=== PATIENT | male | born 1925 | race Caucasian/White ===

== ENCOUNTER 2016-07-12 09:36 | Inpatient (IN) | payer MEDICARE, BC ==
[~2016-07-12] VITALS: Ht 172.7 cm; Wt 64.5 kg
[2016-07-12 10:53] LABS: BASOPHILS 0.1 % (0.0-2.0); EOSINOPHILS 0.4 % (0-7); HEMATOCRIT 31.6 % (42.0-54.0); HEMOGLOBIN 10.9 g/dL (13.5-17.5); IMMATURE GRANULOCYTES 0.5 % (0-5); LYMPHOCYTES 7.7 % (15-50); MCH 29.8 pg (26.0-34.0); MCHC 34.5 g/dL (31.0-37.0); MCV 86.3 fL (80.0-100.0); MONOCYTES 7.3 % (2-11); PLATELET COUNT 377 10x3/uL (130-400); RBC 3.66 10x6/uL (4.20-6.10); RDW 14.1 % (11.5-14.5)
[2016-07-12 11:31] LABS: ALBUMIN 3.7 g/dL (3.4-5.0); ANION GAP 14.1 mmol/L (8-16); BILIRUBIN - TOTAL 1.34 mg/dL (0.2-1.3); CALCIUM 9.4 mg/dL (8.5-10.1); CARBON DIOXIDE 31.6 mmol/L (21.0-32.0); CREATININE - SERUM 2.4 mg/dL (0.6-1.3); PROTEIN - SERUM 7.3 g/dL (6.4-8.2)
[2016-07-12 11:34] LABS: POTASSIUM - SERUM 2.7 mmol/L (3.5-5.1)
[2016-07-12 14:21] LABS: APPEARANCE CLOUDY (CLEAR); COLOR YELLOW (YELLOW)
[2016-07-12 14:22] LABS: BACTERIA FEW /hpf (NONE SEEN); BILIRUBIN NEGATIVE (NEGATIVE); EPITHELIAL CELLS NSEEN /hpf (0-5); GLUCOSE NEGATIVE (NEGATIVE); KETONE NEGATIVE (NEGATIVE); LEUKOCYTE ESTERASE 2+ (NEGATIVE); NITRITE NEGATIVE (NEGATIVE); PROTEIN TRACE mg/dL (NEGATIVE); RED CELLS - URINE 0-5 /hpf (0-5); UROBILINOGEN NORMAL (NORMAL); WHITE CELLS - URINE 25-50 /hpf (0-5)
[2016-07-12 14:29] LABS: YEAST >1+ WITH HYPHAE /hpf (NONE SEEN)
[2016-07-12] MEDS ORDERED: ASPIRIN EC81 M1 PO (16:51)
[2016-07-12] MEDS ORDERED: XANAX0.5 MG (16:53)
--- NOTE | 2016-07-12 17:09 | NUR ---
Patient Name: IBAN ALATORRE Admission Status: ER Accout number: [id number] Admission Date: 07-12-2016 : 1925 Admission Diagnosis: GI Bleed, Constipation Attending: JONY Current LOS: 1 Anticipated DC Date: 07-15-2016 Planned Disposition: Home with Home Health Primary Insurance: MEDICARE A & B Discharge Planning Comments: Cm met with patient to complete initial discharge planning assessment. Patient gave consent to complete assessment. Patient reports he lives home alone and has [facility]. He was recently discharged from [facility] for impaction and hyponatremia. He reports when he discharges he will have 24/7 caregivers 5 days a week through [facility]. Patient requires assistance with bathing, dressing, and medication management. Patient [facility] He is unsure of additional needs at this time. CM will continue to follow and assist with dc plan/needs. Agricultural Produce Washer: Lotus Sanabria RN, [facility] [phone] Is the patient Alert and Oriented? Yes * How many steps to enter\exit or inside your home? THREE * PCP [facility] Marge [facility] * [facility] * Preadmission Environment Home Alone * ADLs Partial Dependent * Partial ADLs (Assistance needed) Bathing Medication Management * Equipment Bedside Commode Cane Rolling Walker Shower Chair * List name and contact numbers for known caregivers / representatives who currently or will assist patient after discharge: Gino Alatorre - - [phone] * Community resources currently utilized Home Health * Please name any agencies selected above. [facility] [phone] * Additional services required to return to the preadmission environment? No * Can the patient safely return to the preadmission environment? Yes * Has this patient been hospitalized within the prior 30 days at any hospital? Yes
[2016-07-12 17:30] VITALS: BP 139/62; BMI 23.4
--- NOTE | 2016-07-12 17:40 | NUR ---
RECEIVED PATIENT FROM ER. ARRIVED KIRSTIN NELSON. ASSESSMENT, HX DONE. MONITOR ON SHOWS CAFIB. PT HAS A PACEMAKER. SMALL AMT OF BLOOD ON DEPENDS. WILL CONTINUE TO MONITOR.
--- NOTE | 2016-07-12 18:43 | NUR ---
IV STARTED IN THE RIGHT WRIST. IV FLUID OF NS AT 75CC/HR PT IS [place] TRIBE. TELEMERTY SHOWS SR. WILL MONITOR
[2016-07-12 20:00] VITALS: BP 131/53
--- NOTE | 2016-07-12 21:00 | NUR ---
INSERTED WINTER PER ORDERS R/T URINARY RENTENTION. UPON INSERTION IMMEDIATE FLOW OF CONCENTRATED URINE CAME OUT. PT HAD 1400ML OUT IMMEDIATELY. EMPTIED WINTER BAG AND SECURED STAT LOCK TO R.INNER THIGH AND PLACED WINTER BAG TO DRAIN TO GRAVITY. PT VOICED IMMEDIATE RELIEF AND THANKS. PT IS SITTING UP IN BED RESTING QUIELTY WAITING ON HIS NIGHT MEDS. DENIES ANY FURTHER NEEDS AT THIS TIME. CL IN REACH, BED IN LOWEST, SIDE RAILS X2 AND BOX ALARM CONNECTED TO L.SHOULDER. WILL CPOC.
[2016-07-13] VITALS: BP 167/50
--- NOTE | 2016-07-13 01:00 | NUR ---
PT RESTING QUIETLY IN BED WITH EYES CLOSED. RR NONLABORED ON RA. NO S/S OF DISTRESS OR ANY CURRENT NEEDS NOTED. CL IN REACH, BED IN LOWEST, SIDE RAILS X2. WILL CTM.
[2016-07-13 04:00] VITALS: BP 106/39
[2016-07-13] MEDS ORDERED: MIRALAX17 GM PO (04:06)
[2016-07-13] MEDS ORDERED: LEVOXYL25 MCG PO (04:06)
[2016-07-13] MEDS ORDERED: MIRAPEX0.125 MG PO ×2 (04:06→04:07)
[2016-07-13] MEDS ORDERED: NORVASC10 MG PO (04:07)
[2016-07-13] MEDS ORDERED: PROTONIX40 MG PO (04:07)
[2016-07-13] MEDS ORDERED: HYDROCODON-ACE1 EAC7 PO (04:07)
[2016-07-13] MEDS ORDERED: VITAMIN B-1100 M1 PO (04:08)
[2016-07-13] MEDS ORDERED: TUMS500 MG PO (04:08)
[2016-07-13] MEDS ORDERED: ZOFRAN4 MG PO (04:08)
[2016-07-13] MEDS ORDERED: PACERONE200 MG PO (04:09)
[2016-07-13] MEDS ORDERED: ALEVE220 MG PO (04:09)
[2016-07-13] MEDS ORDERED: DULCOLAX10 MG/SUPP RC (04:10)
[2016-07-13] MEDS ORDERED: VITAMIN B-121000 MCG PO (04:10)
[2016-07-13] MEDS ORDERED: CARDURA1 MG PO (04:11)
[2016-07-13] MEDS ORDERED: FUROSEMIDE40 MG PO (04:11)
[2016-07-13] MEDS ORDERED: FIBRICOR105 MG PO (04:11)
[2016-07-13] MEDS ORDERED: GEMFIBROZIL600 MG PO (04:12)
[2016-07-13 05:55] LABS: BASOPHILS 0.1 % (0.0-2.0); HEMATOCRIT 27.6 % (42.0-54.0); HEMOGLOBIN 9.4 g/dL (13.5-17.5); IMMATURE GRANULOCYTES 0.7 % (0-5); LYMPHOCYTES 6.3 % (15-50); MCH 29.7 pg (26.0-34.0); MCHC 34.1 g/dL (31.0-37.0); MCV 87.3 fL (80.0-100.0); MEAN PLATELET VOLUME 8.9 fL (7.4-10.4); MONOCYTES 8.3 % (2-11); NEUTROPHILS 83.6 % (40-80); PLATELET COUNT 364 10x3/uL (130-400); RBC 3.16 10x6/uL (4.20-6.10); RDW 14.2 % (11.5-14.5); WBC 8.3 10x3/uL (4.8-10.8)
[2016-07-13 06:34] LABS: ANION GAP 12.3 mmol/L (8-16); BILIRUBIN - TOTAL 0.9 mg/dL (0.2-1.3); CALCIUM 8.3 mg/dL (8.5-10.1)
[2016-07-13 06:36] LABS: APTT 29.9 SECONDS (22.8-39.4)
[2016-07-13 06:38] LABS: INR 1.01 (0.85-1.17); PROTIME 13.2 SECONDS (11.6-15.0)
[2016-07-13 07:13] LABS: POTASSIUM - SERUM 2.3 mmol/L (3.5-5.1)
[2016-07-13 08:27] VITALS: BP 129/60
--- NOTE | 2016-07-13 08:58 | NUR ---
ASSESSMENT COMPLETED. TELEMERTY SHOWS SR. RIGHT WRIST IV WITH NS AT 75. TO XRAY FOR TEST. WILL MONITOR
--- NOTE | 2016-07-13 10:15 | NUR ---
BACK FROM [facility]. PT HAD A LARGE AMT OF STOOL. PT CLEANED WITH FRESH LINEN ON
[2016-07-13 12:02] VITALS: BP 116/44
[2016-07-13 14:09] VITALS: Ht 172.7 cm; Wt 64.5 kg
--- NOTE | 2016-07-13 15:09 | NUR ---
LYING QUIETLY. STILL PASSING STOOL. TELEMERTY SHOWS PACED BEATS. WILL MONITOR
[2016-07-13 16:38] VITALS: BP 123/52
[2016-07-13 20:00] VITALS: BP 120/56
--- NOTE | 2016-07-13 20:15 | NUR ---
PT RESTING IN BED. ALERT/ORIENTED. NO IV ACCESS AND DOES NOT WANT TO BE STUCK AT THIS TIME. WILL TRY WHEN PT IS IN AGREEMENT. SR /PACED ON TELEMETRY. WINTER PATENT TO BEDSIDE DRAIN BAG. PT HAVING FREQUENT BM'S FROM [facility] DONE TODAY. ALSO MONITORING POTASSIUM LEVEL PER ELECTROLYTE PROTOCOL. SEE COMPLETED ASSESSMENT. CPOC. CALL LIGHT IN REACH.
--- NOTE | 2016-07-13 22:42 | NUR ---
HS MEDS GIVEN. NEWEST POTASSIUM LEVEL 2.7, ELECTROLYTE PROTOCOL INITIATED, 20MEQ POTASSIUM LIQUID GIVEN IN OJ. PT HAS FINALLY TAPERED OFF ON BMS'S FROM [facility]. WILL MONITOR.
--- NOTE | 2016-07-14 02:36 | NUR ---
PT WAS GIVEN 2 DOSES OF POTASSIUM PER ELECTROLYTE PROTOCOL BUT NOW STATES IT IS MAKING HIM NAUSEATED. REFUSED 3RD DOSE, BUT DID DRINK 240ML OF OJ.
[2016-07-14 04:00] VITALS: BP 111/49
[2016-07-14 05:53] LABS: BASOPHILS 0.1 % (0.0-2.0); EOSINOPHILS 2.7 % (0-7); HEMOGLOBIN 10.6 g/dL (13.5-17.5); IMMATURE GRANULOCYTES 0.5 % (0-5); LYMPHOCYTES 8.7 % (15-50); MCH 29.9 pg (26.0-34.0); MCHC 33.1 g/dL (31.0-37.0); MEAN PLATELET VOLUME 8.9 fL (7.4-10.4); MONOCYTES 6.9 % (2-11); NEUTROPHILS 81.1 % (40-80); PLATELET COUNT 386 10x3/uL (130-400); RBC 3.55 10x6/uL (4.20-6.10); RDW 14.2 % (11.5-14.5); WBC 7.7 10x3/uL (4.8-10.8)
--- NOTE | 2016-07-14 05:59 | NUR ---
AM MEDS GIVEN. PT HAS HAD NUMEROUS BOWEL MOVEMENTS THROUGH THE NIGHT. CARE PROVIDED. CALL LIGHT IN REACH.
[2016-07-14 06:15] LABS: MCV 90.1 fL (80.0-100.0)
[2016-07-14 06:30] LABS: CALCIUM 8.8 mg/dL (8.5-10.1); CREATININE - SERUM 1.8 mg/dL (0.6-1.3)
--- NOTE | 2016-07-14 07:28 | NUR ---
PT SITTING UP IN BED DENIES NEEDS WILL CONT TO MONITOR
[2016-07-14 08:05] VITALS: BP 123/61
[2016-07-14 08:09] LABS: MAGNESIUM - SERUM 1.8 mg/dL (1.8-2.4); PHOSPHOROUS 2.9 mg/dL (2.5-4.9)
--- NOTE | 2016-07-14 08:20 | NUR ---
IV ACCESS-22 GAUGE INSERTED IN RIGHT HAND FOR SALINE LOCK. ERICA JEFFRIES RN
--- NOTE | 2016-07-14 09:39 | NUR ---
PT WANTS TO TAKE GOLEYLY SOLUTION AT 1 PM. HOLDING UNTIL THEN.
[2016-07-14 15:22] VITALS: BP 114/55
--- NOTE | 2016-07-14 20:00 | NUR ---
FOLLOW UP POTASSIUM LEVEL NOW 3.6 NO FURTHER ACTION REQUIRED.
--- NOTE | 2016-07-14 20:32 | NUR ---
PT RESTING/ALERT AND ORIENTED. HE HAS COMPLETED THE [facility] GI PREP FOR HIS COLONOSCOPY IN AM. REVIEWED PLAN OF CARE. IVF NS @ 75ML/HR INFUSING. MONITORING POTASSIUM LEVEL PER ELECTROLYTE PROTOCOL. SEE SHIFT ASSESSMENT. CPOC. CALL LIGHT IN REACH.
[2016-07-14 20:39] LABS: CHOL - HDL RATIO 5.2 ratio (2.3-4.9); LDL-HDL RATIO 3.4 ratio (1.5-3.5)
[2016-07-14 22:07] VITALS: BP 149/73
--- NOTE | 2016-07-14 22:18 | NUR ---
HS MEDS GIVEN TO PATIENT. PT ALSO REQUESTED A PAIN PILL. HE IS VERY TIRED AND "MISERABLE" FROM ALL THE GI PREP HE HAS BEEN THROUGH. DISCUSSED HOW HIS STOMACH IS UNSETTLED. WILL ADMINISTER ZOFRAN 4MG SIVP AND MONITOR. IVF INFUSING. CALL LIGHT IN REACH.
[2016-07-15 01:57] VITALS: BP 129/63
[2016-07-15 05:26] VITALS: BP 106/63
[2016-07-15 06:54] LABS: MAGNESIUM - SERUM 1.7 mg/dL (1.8-2.4); PHOSPHOROUS 2.3 mg/dL (2.5-4.9); POTASSIUM - SERUM 3.3 mmol/L (3.5-5.1)
[2016-07-15 08:00] VITALS: BP 133/47
--- NOTE | 2016-07-15 08:32 | NUR ---
ASSESSMENT DONE. PT RESTING. A/O. NPO FOR COLONOSCOPY. NO DISTRESS NOTED. CALL LIGHT WITH IN REACH. WILL CONT. TO MONITOR.
--- NOTE | 2016-07-15 09:00 | NUR ---
PT TO GI LAB VIA BED. NO FAMILY PRESENT.
--- NOTE | 2016-07-15 09:19 | NUR ---
OUT OF ROOM FOR PROCEDURE. WILL CONT. PLAN OF CARE.
--- NOTE | 2016-07-15 10:49 | NUR ---
PT BACK FROM GI LAB. PT A/O. NO DISTRESS NOTED. WILL MONITOR. NO BLEEDING FOUND.
[2016-07-15 11:23] VITALS: BP 118/53
[2016-07-15 12:52] LABS: BASOPHILS 0.2 % (0.0-2.0); EOSINOPHILS 3.2 % (0-7); HEMATOCRIT 30.9 % (42.0-54.0); HEMOGLOBIN 10.1 g/dL (13.5-17.5); IMMATURE GRANULOCYTES 0.5 % (0-5); LYMPHOCYTES 8.2 % (15-50); MCH 29.8 pg (26.0-34.0); MCHC 32.7 g/dL (31.0-37.0); MCV 91.2 fL (80.0-100.0); MEAN PLATELET VOLUME 9.1 fL (7.4-10.4); NEUTROPHILS 79.9 % (40-80); PLATELET COUNT 389 10x3/uL (130-400); RBC 3.39 10x6/uL (4.20-6.10); RDW 14.8 % (11.5-14.5)
[2016-07-15 15:28] VITALS: BP 121/55
[2016-07-15] MEDS ORDERED: DIFLUCAN100 MG PO (17:10)
[2016-07-15] MEDS ORDERED: FERREX 150 PLUS1 CAP PO (17:11)
--- NOTE | 2016-07-15 17:14 | NUR ---
Patient Name: IBAN PAREKH Encounter No: [id number] : 1925 Primary Insurance: MEDICARE A & B Anticipated DC Date: 07-15-2016 Planned Disposition: Home with Home Health External Planned Provider: TO BE ARRANGED BY THE [facility] DCP follow-up note: CM MET WITH PT AT HIS REQUEST. PT REPORTS HE WANTS TO DISCHARGE HOME TODAY AND HAS ARRANGED 24 HOUR PER DAY CARE IN HOME FOR THE NEXT 5 DAYS TO BEGIN AT 8PM TONIGHT. PT HAS A FRIEND TO TRANSPORT HIM HOME TODAY. PT WANTS HOME HEALTH, HIS PRIMARY CARE PROVIDER IS DR. BARKER WITH [facility] IN [place]. CM ADVISED THAT CM WOULD ASK DR BERMAN FOR HOME HEALTH ORDER, FAX IT TO THE [facility] AND IF DR. BARKER AGREES AND PROVIDES ORDERS, THE DC WOULD ARRANGE HOME HEALTH. PT REPORTS AGREEMENT. PT STATES THAT AFTER 5 DAYS, IF HE NEEDS REHAB, HE WILL CONTACT [facility]. IMPORTANT MESSAGE FROM MEDICARE PROVIDED AND EXPLAINED. CM PAGED AND SPOKE TO DR. BERMAN WHO PROVIDED HOME HEALTH ORDER. CM CALLED [facility] AT 1630 HOURS, WAS NOT ANSWERED AND CALL FORWARDED TO [facility] OFFICE. CM FAXED REFERRAL FOR HOME HEALTH TO [facility] AT [phone]. PT NOTIFIED. DR. BERMAN NOTIFIED. NO FURTHER DISCHARGE NEEDS. Harry Godoy, CASE MANAGEMENT
[2016-07-15] MEDS ORDERED: LEVOXYL25 MCG PO (17:15)
--- NOTE | 2016-07-15 18:05 | NUR ---
D/C INSTRUCTIONS GIVEN TO PT. VERBALIZED UNDERSTANDING. IV REMOVED. PT AWAITING TRANSPORTATION HOME.
--- NOTE | 2016-07-15 18:24 | NUR ---
PT D/C HOME VIA PRIVATE VEHICLE. HH TO FOLLOW. WINTER LEFT IN. PT HAD WINTER CATH WHEN HE WAS ADMITTED TO HOSPITAL.
--- NOTE | 2016-07-16 09:07 | NUR ---
Patient Name: IBAN PAREKH Encounter No: [id number] : 1925 Primary Insurance: MEDICARE A & B Anticipated DC Date: 07-15-2016 Planned Disposition: Home with Home Health External Planned Provider: TO BE ARRANGED BY [facility] follow-up note: FAXED DISCHARGE INSTRUCTIONS AND DISCHARGE MEDICATION LIST THAT WERE NOT AVAILABLE PRIOR TO END OF CM SHIFT LAST NIGHT, TO [facility] AT [phone], TO ASSIST [facility] IN MAKING DECISION AND ARRANGING HOME HEALTH IF THE [facility] PHYSICIAN AGREES WITH NEED. PT DISCHARGED HOME LAST EVENING. NO FURHTER NEEDS IDENTIFIED AT THIS TIME. Harry Godoy, CASE MANAGEMENT
--- NOTE | 2016-07-23 15:02 | OP ---
PATIENT NAME: IBAN ALATORRE MEDICAL RECORD: [id number] :[birth year] LOCATION:D.M2 D.2125 ADMISSION DATE:07/12/16 SURGEON: VIKA BAKER MD DATE OF OPERATION: 07/15/2016 PROCEDURE: Colonoscopy with polypectomy. INDICATIONS: Mr. Alatorre is a delightful 89-year-old gentleman who presented to [facility] with rectal bleeding. He had been in rehab, on pain medication, developed severe obstipation with a fecal impaction. He had disimpaction at [facility] Emergency Department. He developed bleeding post-disimpaction, which persisted. His bleeding ceased during his hospitalization. His hemoglobin has been stable between 10-10.5. He presents for inpatient colonoscopy. PREMEDICATIONS: Total IV anesthesia (propofol 210 mg). INSTRUMENT: Olympus video colonoscope. PROCEDURE AND FINDINGS: After receiving informed consent, Mr. Alatorre was placed in left lateral decubitus position, sedated as per anesthesia. After achieving adequate level of sedation, digital rectal exam was performed that showed a few external hemorrhoidal tags, decreased sphincter tone. No palpable rectal masses. Prostate was small, firm without palpable nodules. Colonoscope was introduced per rectally and advanced to the cecum. The cecum, IC valve, and appendiceal orifice were identified. Within the cecum was a 0.5 cm sessile polyp removed with hot biopsy forcep technique. On the IC valve was a flat 0.3 cm sessile polyp removed with hot biopsy forcep technique. As the colonoscope was withdrawn, careful inspection was made of the bradley of the colon. Overall mucosa had normal vascular and fold pattern. There is no blood seen in the colon. There were a moderate number of diverticula seen scattered throughout the sigmoid colon. Retroflexion in the rectum was somewhat difficult secondary to redundancy of tissue (suspected partial rectal prolapse) and mild internal hemorrhoids were noted. A fair prep was present. Mr. Alatorre tolerated the procedure well, no immediate complications. ASSESSMENT: 1. Small cecal polyp status post hot biopsy. 2. Small IC valve polyp, status post hot biopsy. 3. Moderate sigmoid diverticulosis coli. 4. Mild internal hemorrhoids. 5. Redundant tissue in the distal rectum, suspect slight rectal prolapse. 6. Rectal bleeding was likely secondary to fissure or anal tear post-disimpaction or diverticular bleed. Bleeding has resolved. Hemoglobin and hematocrit are stable. 7. Anemia, acute, secondary to gastrointestinal blood loss. RECOMMENDATIONS: 1. Regular diet. 2. Daily Metamucil and Colace. 3. Avoid aspirin, nonsteroidal anti-inflammatory drugs for 14 days post-polypectomy. 4. Stable for discharge from GI standpoint. TRANSINT:[id number] Voice Confirmation ID: [id number] DOCUMENT ID: [id number] OPERATIVE REPORT [id number] IBAN ALATORRE TERRI MD at 1502 CC: INKKI GOULD MD and ZUHAIR BERMAN MD [id number] DICTATION DATE: 07/15/16 1010 ICE CREAM SHOP ASSOCIATE: 07/15/16 1157 DIS IN 07/15/16 [id number] [place] [address]
== END 2016-07-15 18:25 | disposition home or self-care (01) | DRG 348 ==
LOC: D.ER 09:36 → D.M2 15:01
PROVIDERS: Emergency Medicine; Family Medicine; Internal Medicine Gastroenterology; ADMIT Family Medicine
PROC: 0DBC8ZZ Excision of Ileocecal Valve, Via Natural or Artificial Opening Endoscopic (ICD-10-PCS; 2016-07-15)
PROC: 0DBH8ZZ Excision of Cecum, Via Natural or Artificial Opening Endoscopic (ICD-10-PCS; principal; 2016-07-15 09:30)
DX: D12.0 Benign neoplasm of cecum (principal); K62.5 Hemorrhage of anus and rectum; B37.49 Other urogenital candidiasis; E87.1 Hypo-osmolality and hyponatremia; N17.9 Acute kidney failure, unspecified; D62 Acute posthemorrhagic anemia; K59.00 Constipation, unspecified; E03.9 Hypothyroidism, unspecified; I10 Essential (primary) hypertension; I48.91 Unspecified atrial fibrillation; I25.10 Atherosclerotic heart disease of native coronary artery without angina pectoris; E87.6 Hypokalemia; G25.81 Restless legs syndrome; E86.0 Dehydration; E78.5 Hyperlipidemia, unspecified; K21.9 Gastro-esophageal reflux disease without esophagitis; N40.0 Benign prostatic hyperplasia without lower urinary tract symptoms; K62.3 Rectal prolapse; K64.8 Other hemorrhoids; K57.90 Diverticulosis of intestine, part unspecified, without perforation or abscess without bleeding; Z95.0 Presence of cardiac pacemaker

== ENCOUNTER 2016-07-24 04:13 | Inpatient (IN) | payer MEDICARE, BC ==
[~2016-07-24] VITALS: Ht 172.7 cm; Wt 72.1 kg
--- NOTE | ~2016-07-24 | DS ---
PATIENT:IBAN PAREKH :[birth year] MEDICAL RECORD: [id number] DISCHARGE SUMMARY ADMISSION DATE: 07/24/16 DISCHARGE DATE: 08/03/16 Addendum DISCHARGE MEDICATION: His doxazosin should read 1 mg 1/2 tab p.o. b.i.d. and then amlodipine 10 mg p.o. daily. TRANSINT:[id number] Voice Confirmation ID: [id number] DOCUMENT ID: [id number] JAYLENE RODRIGUEZ MD CC: [id number] DICTATION DATE: 08/03/16719 COOK TACO: 08/03/16 08 DIS IN 08/03/16 [id number] [place] [id number]
[~2016-07-24 04:13] MED LIST: ALEVE220 MG PO; ASPIRIN EC81 M1 PO; CARDURA1 MG PO; DIFLUCAN100 MG PO; DULCOLAX10 MG/SUPP RC; FERREX 150 PLUS1 CAP PO; FIBRICOR105 MG PO; FUROSEMIDE40 MG PO; GEMFIBROZIL600 MG PO; HYDROCODON-ACE1 EAC7 PO; LEVOXYL25 MCG PO; MIRALAX17 GM PO; MIRAPEX0.125 MG PO; NORVASC10 MG PO; PACERONE200 MG PO; PROTONIX40 MG PO; TUMS500 MG PO; VITAMIN B-1100 M1 PO; VITAMIN B-121000 MCG PO; XANAX0.5 MG; ZOFRAN4 MG PO
[2016-07-24 05:13] LABS: BASOPHILS 0.1 % (0.0-2.0); HEMATOCRIT 27.9 % (42.0-54.0); IMMATURE GRANULOCYTES 0.6 % (0-5); LYMPHOCYTES 6.8 % (15-50); MCH 29.4 pg (26.0-34.0); MCHC 32.3 g/dL (31.0-37.0); MCV 91.2 fL (80.0-100.0); MEAN PLATELET VOLUME 8.4 fL (7.4-10.4); NEUTROPHILS 84.5 % (40-80); PLATELET COUNT 300 10x3/uL (130-400); RBC 3.06 10x6/uL (4.20-6.10); RDW 15.3 % (11.5-14.5); WBC 10.4 10x3/uL (4.8-10.8)
[2016-07-24 05:22] LABS: ALBUMIN 3.2 g/dL (3.4-5.0); ANION GAP 14.8 mmol/L (8-16); BILIRUBIN - TOTAL 0.61 mg/dL (0.2-1.3); CALCIUM 8.9 mg/dL (8.5-10.1); CARBON DIOXIDE 27.7 mmol/L (21.0-32.0); CREATININE - SERUM 1.6 mg/dL (0.6-1.3); POTASSIUM - SERUM 4.5 mmol/L (3.5-5.1); PROTEIN - SERUM 6.7 g/dL (6.4-8.2)
[2016-07-24 05:38] LABS: TROPONIN-I 0.062 ng/mL (0.000-0.060)
[2016-07-24 08:41] VITALS: BP 135/64; BMI 24.2
--- NOTE | 2016-07-24 08:50 | NUR ---
RECEIVED PT FROM ER VIA STRETCHER. NO OTHER NEEDS AT THIS TIME. ASSESSMENT DONE PER FLOWHSEET. WILL CONTINUE TO MONITOR.
[2016-07-24 09:04] VITALS: BP 135/64
--- NOTE | 2016-07-24 11:57 | NUR ---
VANCOMYCIN IV GIVEN RIGHT WRIST/FOREARM AREA. 20 DANIEL. PHERERIAL LINE. HELPED INTO BATHROOM. STAND BY ASST. RAISOR ON TOILET.
[2016-07-24 12:12] VITALS: BP 126/54
[2016-07-24 13:07] LABS: CKMB 1.4 U/L (0.0-3.6); CREATINE KINASE 17 UL (21-232)
[2016-07-24 13:10] LABS: TROPONIN-I 0.067 ng/mL (0.000-0.060)
[2016-07-24 16:25] VITALS: BP 127/50
--- NOTE | 2016-07-24 17:46 | HP ---
PATIENT: IBAN PAREKH MEDICAL RECORD: [id number] ACCOUNT: [id number] LOCATION:[address] : [birth year] ADMISSION DATE: 07/24/16 HISTORY AND PHYSICAL EXAMINATION REASON FOR ADMISSION: Cough and shortness of breath. 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 He said that he had been in this hospital on July [address] Abel's care for obstipation and rectal bleeding. He was seen by Dr. Avendano and had a colonoscopy that showed a few polyps and rectal tear. He said that problem has improved. He had been at [facility] getting physical therapy and developed increasing cough, congestion about 9:00 last night. He panicked and became more short of breath, his sat was 84% and came in by EMS. He said his cough had been nonproductive. He has is sure he has had a fever. He has had an indwelling Foy catheter since he was here and says no one would take it out. He says he normally does not have any trouble urinating. He also relates having had 4 admissions since January 2016 at [facility] for pneumonia. He has never really had trouble with his lungs. He denies any recent chest pain or significant heart disease. He did receive a pacemaker for presumed AFib and bradycardia sometime in the recent past, but those records are not available. PAST MEDICAL HISTORY: Pneumonia times 4 in 2015, PAF, sick sinus syndrome, hypothyroidism, hypertension, degenerative joint disease, constipation, diverticulosis, rectal bleeding from a rectal tear in July 2016, GERD, questionable history of coronary artery disease, he denies having had cardiac catheterization, and restless legs syndrome. PAST SURGICAL HISTORY: He has had bilateral cataract surgery, bilateral knee replacements for arthritis, right inguinal hernia repair and cholecystectomy, TURP and pacemaker placement. FAMILY HISTORY: Father at 84 of old age. Mother at 83 of bone cancer, type unknown. One brother had an NV. SOCIAL HISTORY: He has been twice, both wives are . 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 He moved here for weather reasons. [place]. PAST MEDICAL HISTORY: He smoked until age 36 and quit. Denies heavy alcohol use. CURRENT MEDICATIONS: Amiodarone 200 mg a day, Dulcolax 10 mg daily p.r.n., vitamin B12 of 1 cc orally daily, Cardura 0.5 mg p.o. b.i.d., fenofibrate 105 mg daily, Diflucan 100 mg p.o. daily, Lasix 40 mg p.o. q.a.m., gemfibrozil 600 mg p.o. b.i.d., ferrous sulfate 150 mg p.o. daily, levothyroxine 75 mcg p.o. daily, Zofran 4 mg q.6 p.r.n. nausea and vomiting, Protonix 40 mg p.o. daily, MiraLax 17 grams p.o. in juice daily, Mirapex 0.125 mg p.o. at bedtime and 9:00 a.m., and thiamine 100 mg p.o. daily. REVIEW OF SYSTEMS: GENERAL: He has been somewhat fatigued. No fever. HEENT: No recent visual change, sinus congestion, shortness of breath, or HISTORY AND PHYSICAL [id number] IBAN PAREKH hearing difficulty. RESPIRATORY: Increased cough, congestion last night and trouble breathing with a low O2 sat. He denies sputum production or hemoptysis. CARDIAC: No exertional chest pain, claudication, or edema. GASTROINTESTINAL: No nausea, vomiting, change in stools, or blood per rectum. His constipation has been better since being on bowel regimen prescribed by Dr. Avendano. GENITOURINARY: Has nocturia once nightly. He said he has never had real trouble voiding and now has indwelling Foy. He would like it removed. No history of UTI or prostate cancer. MUSCULOSKELETAL: Has arthralgias in his knees and hips, but it is tolerable. ENDOCRINE: Denies polyuria, polydipsia, heat or cold intolerance. NEUROLOGIC: No history of stroke, TIA, or vascular headaches. INTEGUMENT: No rash or itching. PSYCHIATRIC: Denies depress mood. PHYSICAL EXAMINATION: GENERAL: The patient is alert and oriented and gives a good history. VITAL SIGNS: His temperature is 98.2 Fahrenheit, respirations are 24 and unlabored, blood pressure is 134/59 ____ on 2 liters, and heart rate is 88 and regular. HEENT: Normocephalic. Eyes are clear with lens implants noted. SKIN: Conjunctiva is somewhat pale. Mouth unremarkable. NECK: Supple, without bruits or JVD. CHEST: He has crackles in the right base. No wheezes. HEART: Regular rate and rhythm with I/ aortic systolic murmur. ABDOMEN: Soft and nontender. GENITOURINARY: Shows Foy intact. Testicles down. EXTREMITIES: No CC&E. He has healed surgical scars over both knees from prior replacement. NEUROLOGICAL: Oriented times 3. Memory is intact. Gait is somewhat slow due to quad weakness. Motor and sensory are otherwise intact. PSYCHIATRIC: Denies depressed mood. LABORATORY DATA: Shows a white count of 10.4 thousand with a left shift. H&H is 9.1 and 27.9, reflecting his prior anemia. MCV is 91.2. Platelet count is 300. Electrolytes are normal. BUN is 23, creatinine 1.6, alkaline phosphatase 120. Troponin 0.062. ProBNP is 3051. Throat culture is negative. Influenza culture is negative. DIAGNOSTIC DATA: Chest x-ray shows right lobar pneumonia. Pacemaker is noted as well. ASSESSMENT: 1. Hospital-acquired pneumonia, recurrent, with hypoxemia. 2. Chronic obstructive pulmonary disease. 3. Sick sinus syndrome with pacemaker. 4. History of paroxysmal atrial fibrillation. 5. Degenerative joint disease. 6. Hyperlipidemia. 7. Diverticulosis. 8. Anemia due to rectal bleeding?. 9. Essential hypertension. 10. Abnormal EKG with slight inferior strain pattern. 11. Mildly elevated troponin. HISTORY AND PHYSICAL [id number] IBAN PAREKH PLAN: We will check serial cardiac enzymes. Dr. Chance has been consulted by Dr. Jones from the ED. We will place the patient on appropriate antibiotics for hospital-acquired pneumonia. Review his records from [facility] for previous heart workup, anemia workup and further workup pending clinical course. TRANSINT:[id number] Voice Confirmation ID: [id number] DOCUMENT ID: [id number] JAYLENE RODRIGUEZ MD at 1746 CC: [id number] DICTATION DATE: 07/24/16 0936 NATURAL RESOURCES SPECIALIST: 07/24/16 1402 ADM IN [id number] [place] [address]
[2016-07-24 19:19] LABS: CKMB 1.4 U/L (0.0-3.6); CREATINE KINASE 20 UL (21-232); TROPONIN-I 0.055 ng/mL (0.000-0.060)
[2016-07-24 21:37] VITALS: BP 129/57
--- NOTE | 2016-07-24 23:05 | NUR ---
INITIAL ROUNDS COMPLETED AT 1915 HRS. PT DEMANDING PAIN MEDS. 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 STATES OK. MRPHONE DEALER SUPPORT TECHNICIAN BROUGHT INTO ROOM AND PT THEN REFUSED MED STATING HE WANTS ALEVE. ASKED PT IF HE WANTED ANYTHING ELSE LIKE SLEEPING MEDS, COUGH MEDS ETC AND PT STATED NO. DR RODRIGUEZ PAGED AT 1930 HRS. AND ORDER FOR ALEVE OBTAINED. NAPROXEN 500MG PO GIVEN. ASSESSMENT COMPLETED AT 2009 HRS. VSS. O2 2LNC. IV TO RFA WITH NS AT 50CC/HR. NUMEROUS BRUISES NOTED TO BILAT ARMS. BRUISE NOTED TO L LATERAL MID BACK. CONCAVE CHEST NOTED. LUNGS DIMINISHED IN BASES BILAT WITH SCATTERED EXP WHEEZE NOTED TO R LOBE. PT CALLED AT 2044 HRS STATING HE HAS WHEEZES AND HAVING TROUBLE BRATHING. O2 SAT 91%. pt pulled out in bed and informed to take slow, deep breaths. O2 SAT TO 93%. PM MEDS GIVEN. PT CALLED AT 2144 HRS AND STATES HE WAS HAVING TROUBLE BREATHING. O2 SAT 93%. PT PULLED UP IN BED. PT CALLED AGAIN AND STATED HE WANTED SOMETHING TO SLEEP. INFORMED PT HE WAS ASKED THAT EARLIER WHEN DR RODRIGUEZ WS PAGED AND HE STATED NO. PT DENEID SAYNG NO AND WANTS DR RODRIGUEZ CALLED. DR RODRIGUEZ PAGED AT 2230 HRS AND ORDER FOR RESTORIL OBTAINED. RESTORIL GIVEN. TELEMETR PLACED WITH SR HR 84 NOTED. PPM NOTED. WINTER DRAINING YELLOW URINE AND BLADDER TRAINING IN USE. SCD'S BROUGHT INTO ROOM BUT PT SITTING UP ON SIDE OF BED. O2 SAT 95%. WILL APPLY SCD'S WHEN PT GOES BACK TO BED. WILL CONTINUE TO MONITOR. SR U P X2, CALL LIGHT WITHIN REACH.
--- NOTE | 2016-07-24 23:54 | NUR ---
SCD'S PALCED. PT CLAMER; DENIES ANY SOB. WILL CONTINUE TO MONITOR. BED ALARM IN USE.
--- NOTE | 2016-07-25 00:04 | NUR ---
PT STATES HAS MILD SOB. O2 SAT 96% ON 2LNC. REPOSITIONED IN BED FOR COMFORT. WILL CONTINUE TO MONITOR.
[2016-07-25 00:30] VITALS: BP 113/50
--- NOTE | 2016-07-25 02:00 | NUR ---
PT AWAKE; DENIES ANY SOB. WILL CONTINUE TO MONITOR.
--- NOTE | 2016-07-25 04:24 | NUR ---
O2 SAT 98% ON 2LNC. MAGGY UNCLAMPED AT THIS TIME. WILL CONTINUE TO MONITOR. SR UP X2, CALL LIGHT WITHIN REACH.
[2016-07-25 04:30] VITALS: BP 128/51
[2016-07-25 06:36] LABS: BASOPHILS 0.1 % (0.0-2.0); EOSINOPHILS 0 % (0-7); IMMATURE GRANULOCYTES 0.3 % (0-5); LYMPHOCYTES 2.7 % (15-50); MCH 29.3 pg (26.0-34.0); MCHC 32.4 g/dL (31.0-37.0); MCV 90.4 fL (80.0-100.0); MEAN PLATELET VOLUME 8.7 fL (7.4-10.4); MONOCYTES 6.9 % (2-11); PLATELET COUNT 265 10x3/uL (130-400); RBC 2.39 10x6/uL (4.20-6.10); WBC 11.9 10x3/uL (4.8-10.8)
[2016-07-25 06:37] LABS: HEMATOCRIT 21.6 % (42.0-54.0)
--- NOTE | 2016-07-25 06:40 | NUR ---
VSS THROUGHOUT NIGHT. SR PER CM. WINTER DC'D WITH CATHETER INTACT. PT TOLERATED ACTIVITY WELL. NEEDS MET; WILL CONTINUE TO MONITOR.
[2016-07-25 06:49] LABS: ANION GAP 15.1 mmol/L (8-16); CALCIUM 8.4 mg/dL (8.5-10.1); CARBON DIOXIDE 25.6 mmol/L (21.0-32.0); CREATININE - SERUM 1.7 mg/dL (0.6-1.3); POTASSIUM - SERUM 4.7 mmol/L (3.5-5.1)
[2016-07-25 08:59] VITALS: BP 102/57
[2016-07-25 08:59] LABS: % SATURATION 10 % (15-55); IRON 26 ug/dl (35-150); TOTAL IRON BIND CAPACITY 255 ug/dl (260-445); UNSAT IRON BIND CAPACITY 229 ug/dl (150-375)
[2016-07-25 12:14] VITALS: BP 124/54
[2016-07-25 16:13] VITALS: BP 108/60
--- NOTE | 2016-07-25 19:15 | NUR ---
INITIAL ROUNDS MADE. PT LYING IN BED RECEIVING BLOOD TRANSFUSION. DENIES NEEDS OR C/O AT THIS TIME. TOLERATING PRBC WELL WITH NO S/S REACTION. WILL CONT TO MONITOR PER PROTOCOL.
--- NOTE | 2016-07-25 21:00 | NUR ---
BLOOD TRANSFUSION COMPLETE. VSS. NO SIGNS REACTION. WILL CONT TO MONITOR.
[2016-07-25 21:37] VITALS: BP 112/68
--- NOTE | 2016-07-25 22:25 | NUR ---
PT REQUESTING ALEVE FOR DISCOMFORT. EXPLAINED TO PT ONLY HAD TYLENOL ORDERED, ALEVE HAD BEEN DC'D. 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 REFUSES TYLENOL. STATES "IT HAS NEVER DONE ME ANY GOOD ANYHOW".
--- NOTE | 2016-07-26 00:22 | NUR ---
KEY ENTRY OPERATOR AT BEDSIDE FOR VS. NEEDS ADDRESSED AT THIS TIME. CALL LIGHT IN REACH. WILL CONT TO MONITOR.
[2016-07-26 00:30] VITALS: BP 111/72
--- NOTE | 2016-07-26 02:44 | NUR ---
PT GIVEN TYLENOL REQUESTED. CONT TO REFUSE THE MORPHINE.
--- NOTE | 2016-07-26 03:00 | NUR ---
ASSISTED PT UP TO BATHROOM.
[2016-07-26 04:45] VITALS: BP 115/51
[2016-07-26 06:47] LABS: BASOPHILS 0 % (0.0-2.0); EOSINOPHILS 0.3 % (0-7); HEMOGLOBIN 9.3 g/dL (13.5-17.5); IMMATURE GRANULOCYTES 0.3 % (0-5); LYMPHOCYTES 5.3 % (15-50); MCHC 33.2 g/dL (31.0-37.0); MCV 87.2 fL (80.0-100.0); MEAN PLATELET VOLUME 8.7 fL (7.4-10.4); MONOCYTES 6.4 % (2-11); NEUTROPHILS 87.7 % (40-80); PLATELET COUNT 250 10x3/uL (130-400); RBC 3.21 10x6/uL (4.20-6.10); RDW 16.9 % (11.5-14.5)
[2016-07-26 07:01] LABS: ANION GAP 14.5 mmol/L (8-16); CALCIUM 8.5 mg/dL (8.5-10.1); CARBON DIOXIDE 25.9 mmol/L (21.0-32.0); CREATININE - SERUM 1.9 mg/dL (0.6-1.3)
[2016-07-26 07:04] LABS: POTASSIUM - SERUM 3.4 mmol/L (3.5-5.1)
--- NOTE | 2016-07-26 07:04 | NUR ---
RESTING WELL WITH EYES CLOSED, WILL CONT TO MONITOR.
[2016-07-26 07:59] VITALS: BP 116/48
[2016-07-26 11:56] VITALS: BP 114/51
[2016-07-26 13:02] VITALS: Ht 172.7 cm; Wt 72.1 kg
--- NOTE | 2016-07-26 14:46 | NUR ---
THIS AM PATIENT HAS BEEN UPSET ABOUT WAITING FOR EGD. REFUSING IV MEDS. ORAL MEDS HELD DUE TO BEING NPO. AT THIS TIME PATIENT TO GI LAB FOR EGD.
--- NOTE | 2016-07-26 18:20 | NUR ---
PATIENT HAS BEEN BACK FROM GI LAB. YELENA PROCEDURE WELL. NO APPARENT DISTRESS.
--- NOTE | 2016-07-26 19:08 | NUR ---
PT TO CT VIA W/C
--- NOTE | 2016-07-26 20:01 | NUR ---
ASSESSEMENT DONE. PT BACK FROM CT. LAYING IN BED HOB ELEVATED. SCD'S ON. WEARING O2 AT 2L VIA NC. A/O. DENIES NEEDS AT THIS TIME. CALL LIGHT WITH IN REACH. WILL CONT. TO MONITOR.
[2016-07-26 21:40] VITALS: BP 140/69
--- NOTE | 2016-07-26 23:20 | NUR ---
PT C/O SINUS PAIN AND PRESSURE. REQUEST HEATING PAD FOR FACE. NURSE MADE A HEATING PAD WITH WASH CLOTHES AND HOT WATER, PLACED IN BAG, PLACED DRY WASH CLOTH ON PT'S FACE AND APPLIED WARM PACK. WILL CONT. TO MONITOR.
[2016-07-27 02:00] VITALS: BP 128/65
--- NOTE | 2016-07-27 02:29 | NUR ---
THE PHONE IN PT'S ROOM IS RINGING OVER AND OVER. NURSE WENT INTO PT'S ROOM, AND ASKED PT IF HE WANTED TO TALK ON THE PHONE. PT ANSWERED WITH " NO, I AM THE ONE CALLING. I CAN'T FIND MY CALL BUTTON." PT WAS USING HIS OWN CELL PHONE TO CALL HIS ROOM PHONE. PT'S CALL BUTTON WAS LAYING NEXT TO HIM IN BED. PT REQUESTED A RED POPSICLE.
[2016-07-27 06:04] LABS: BASOPHILS 0.2 % (0.0-2.0); EOSINOPHILS 1.8 % (0-7); HEMATOCRIT 27.5 % (42.0-54.0); IMMATURE GRANULOCYTES 0.2 % (0-5); MCH 28.9 pg (26.0-34.0); MCHC 32.7 g/dL (31.0-37.0); MCV 88.4 fL (80.0-100.0); MEAN PLATELET VOLUME 9.2 fL (7.4-10.4); MONOCYTES 7.7 % (2-11); NEUTROPHILS 82.1 % (40-80); PLATELET COUNT 275 10x3/uL (130-400); RBC 3.11 10x6/uL (4.20-6.10); RDW 17.1 % (11.5-14.5)
[2016-07-27 06:13] LABS: ANION GAP 11.2 mmol/L (8-16); CALCIUM 8.5 mg/dL (8.5-10.1); CARBON DIOXIDE 27.9 mmol/L (21.0-32.0); CREATININE - SERUM 1.7 mg/dL (0.6-1.3); POTASSIUM - SERUM 3.1 mmol/L (3.5-5.1)
[2016-07-27 06:16] LABS: WBC 4.4 10x3/uL (4.8-10.8)
--- NOTE | 2016-07-27 06:24 | NUR ---
EP FOLLOWED. K+ 3.1. 40MEQ OF LIQUID POTASSIUM GIVEN IN ORANGE JUICE. ORDER PUT IN FOR REPEAT K+ IN 4 HOURS. ALSO ORDERED PHOS, AND MAG. PT SITTING ON SIDE OF BED AFTER NURSE ASSISTED PT TO BATHROOM. CALL LIGHT WITH IN REACH. WILL CONT. TO MONITOR.
--- NOTE | 2016-07-27 07:00 | NUR ---
RECEIVED REPORT. ASSUMED CARE OF PATIENT. RESTING IN BED WITH EYES OPEN. CALL LIGHT WITHIN REACH. DENIES NEEDS AT THIS TIME. NO DISTRESS. RESP EVEN AND UNLABORED.
[2016-07-27 07:11] LABS: MAGNESIUM - SERUM 2.3 mg/dL (1.8-2.4)
[2016-07-27 08:07] VITALS: BP 115/57
[2016-07-27 09:17] LABS: FOLATE (FOLIC ACID) - SERUM 5.7 ng/mL (>3.0)
--- NOTE | 2016-07-27 11:36 | NUR ---
RESTING IN BED. NO DISTRESS. LARGE BM FROM SUPPOSITORY. CALL LIGHT WITH IN REACH.
[2016-07-27 12:22] VITALS: BP 108/49
--- NOTE | 2016-07-27 15:00 | CN ---
PATIENT NAME:IBAN ALATORRE MEDICAL RECORD: [id number] : [birth year] LOCATION:[facility].2127 ADMIT DATE: 07/24/16 ACCOUNT: [id number] CONSULTING PHYSICIAN: KATHARINA IRIZARRY MD REFERRING PHYSICIAN: ASHLEY GALINDO MD DATE OF CONSULTATION: 07/24/2016 HISTORY OF PRESENT ILLNESS: Iban Alatorre is an 89-year-old gentleman with cardiovascular history with a history of what sounds like paroxysmal atrial fibrillation, culminating with sick sinus syndrome, status post pacemaker placement ____ with previously placed on Cordarone via Dr. Cezar Lopez. He was in [facility] previously this month for rectal bleeding, underwent colonoscopy by Dr. Avendano at that time. He was admitted with marked dyspnea is found to have a right lower lobe infiltrate on chest x-ray. We asked to see him concerning his cardiovascular status. PAST MEDICAL HISTORY: 1. Includes history of probable sick sinus syndrome, status post pacemaker placement on amiodarone. 2. History of hypertension. 3. Dyslipidemia. 4. Hypertension. ALLERGIES: INCLUDE ISOSORBIDE, ADHESIVE TAPE, CORTISONE. MEDICATIONS: Include iron supplementation 1 cap b.i.d., amlodipine 10 q. day, Cordarone 200 mg p.o. q. day, Cardura 0.5 b.i.d., Lopid 600 b.i.d., fenofibric acid 105 q. day, Mirapex 0.25 q.h.s. SOCIAL HISTORY: Lives here in [place]. Nonsmoker, retired . REVIEW OF SYSTEMS: The patient reports easy bruising but reports no swollen glands. The patient reports no fever, no night sweats, no significant weight gain, no significant weight loss. No significant exercise tolerance. The patient reports no dry eyes, no irritation, no vision change. Patient reports no difficulty hearing and no ear pain. Patient reports no frequent nose bleeds or nose and sinus problems. Patient reports on arm pain on exertion. No shortness of breath while lying down. No history of heart murmur. Patient reports no cough, no wheezing or coughing up blood. Patient reports no abdominal pain, no vomiting. Normal appetite. No diarrhea and not vomiting blood. No nausea and no constipation. Patient reports no incontinence. No difficulty urinating. No hematuria. No increased frequency. Patient reports no muscle aches. No weakness, no arthralgias, no back pain. No swelling of the extremities. Patient reports no abnormal mole, no jaundice, no rashes. Reports no loss of consciousness. No weakness and no numbness. No seizures, dizziness, or headaches. The patient reports no depression, no sleep disturbance, feeling safe in a relationship and no alcohol abuse. Patient reports on fatigue. Reports no runny nose or sinus pressure. No itching, no hives, and no frequent sneezing. PHYSICAL EXAMINATION: GENERAL: Pleasant gentleman in no acute distress, appears stated age. VITAL SIGNS: 135/64, pulse 90. HEENT: Normocephalic, atraumatic. NECK: No bruits noted. CONSULT REPORT [id number] IBAN ALATORRE HEART: Regular, II/ systolic ejection murmur, well-healed pacer in place. LUNGS: Fairly good air excursion, although diminished in the right base. ABDOMEN: Soft, nontender. EXTREMITIES: Pulses are decreased 1+. There is no edema. NEUROLOGIC: Grossly intact. DIAGNOSTIC DATA: ECG shows lateral ST changes consistent with LVH plus demand changes. Enzymes mildly elevated. IMPRESSION: Suspect elevated enzymes figuring to pneumonitis as well as increased demand. No evidence of ongoing ischemia. Clinically, we will interrogate pacemaker to see if he was having breakthrough atrial arrhythmias. Further recommendations based on clinical course. TRANSINT:[id number] Voice Confirmation ID: [id number] DOCUMENT ID: [id number] KATHARINA IRIZARRY MD at 1500 CC: [id number] DICTATION DATE: 07/24/16 0956 BLOOD BANK BOOKING CLERK: 07/24/16 2306 ADM IN [place] [id number] [place] [address]
[2016-07-27 16:10] VITALS: BP 132/65
--- NOTE | 2016-07-27 16:50 | NUR ---
ASSISTE FROM RESTROOM TO BED. DEPENDS UNDER GARMENTS CHANGED. CALL LIGHT PLACED WITHIN REACH. NO DISTRESS.
--- NOTE | 2016-07-27 19:42 | NUR ---
ASSESSMENT DONE. PT C/O INCREASE SOB. PT IS LAYING IN POSITION ON RT SIDE. NURSE AND RT ATTEMPTED TO EDUCATE PT ON THE NEED TO LAY IN BED UPRIGHT WITH HOB ELEVATED. PT STATES " IM NOT GOING TO DO THAT, I'VE BEEN DOING THIS FOR YEARS." PT DID NOT WANT TO DO BREATHING TX, BUT HE DID SO IN PROTEST. HE BELEIVES THE UPDRAFTS ARE MAKING HIM WORSE. O2 SAT 92% ON 9L OXYMIZER. IS GIVEN TO PT AND PT EDUCATED ON HOW TO USE IT. PT DECLINED. PT IS NOT RECEPTIVE TO EDUCATION AT THIS TIME. TEMP IN ROOM SET ON 85. HE DID ALLOW NURSE TO TURN DOWN TO 73. CALL LIGHT WITH IN REACH. WILL CONT. TO MONITOR.
--- NOTE | 2016-07-27 20:11 | NUR ---
PT C/O TROUBLE BREATHING. PT CURLED ON RIGHT SIDE EVERY TIME RT ENTERS ROOM. LAST PM AND THIS RT HAS REQUESTED HELP TO PULL PT UP TO SUPINE POSITION FOR TX. PT STATES TXS DONT HELP MAKE THE SOB WORSE. ARGUMENTATIVE WITH RN AND RT. REQUESTED PT STAY SUPINE AND NOT CURL BACK UP ON RIGHT SIDE SO BREATHING COULD IMPROVE. PT REFUSES. ASKED PT WHAT HE WOULD LIKE RT TO DO TO HELP HIM BREATHE. HE CAN'T GIVE ANSWER. ASKED PT TO TRY TO COUGH AND DEEP BREATHE. PT REFUSES.
[2016-07-28] VITALS (13 sets, daily range): BP systolic 115–176; BP diastolic 50–74
--- NOTE | 2016-07-28 | NUR ---
PT PLACED NPO FOR THOROCENTESIS TOMORROW. SIGNED PLACED ON PT'S DOOR.
--- NOTE | 2016-07-28 03:43 | NUR ---
PT REQUESTED A WET WASH CLOTH TO CLEAN FACE AND MOUTH WITH. PT WANTS WATER TO DRINK. NURSE AND RUG CLEANER REMINDED PT OF NPO STATUS. DENIES OTHER NEEDS AT THIS TIME. CALL LIGHT WITH IN REACH. WILL CONT. TO MONITOR.
--- NOTE | 2016-07-28 04:16 | NUR ---
PT INCONT OF URINE. PT'S DEPENDS IS SATURATED AND URINE HAS SATURATED BEDDING. NURSE ASSISTED PT TO THE RESTROOM. PT AMBULATED WITH WALKER. NURSE CLEANED PT'S MATTRESS PAD WITH SOAP AND WATER, THEN DRIED WITH TOWEL. CHANGED LINENS. ASSISTED PT WITH WASHING MAYKEL AREA AND UPPER LEGS WITH SOAP AND WATER. CHANGED GOWN. ASSISTED PT BACK TO BED. PT SOB WITH ACTIVITY. PT LAYING IN BED ON BACK WITH HOB ELEVATED. CALL LIGHT WITH IN REACH. WILL CONT. TO MONITOR.
[2016-07-28 07:02] LABS: BASOPHILS 0.2 % (0.0-2.0); EOSINOPHILS 2.7 % (0-7); HEMATOCRIT 27.8 % (42.0-54.0); HEMOGLOBIN 9.1 g/dL (13.5-17.5); IMMATURE GRANULOCYTES 0.2 % (0-5); MCH 29.4 pg (26.0-34.0); MCHC 32.7 g/dL (31.0-37.0); MCV 89.7 fL (80.0-100.0); MONOCYTES 9.6 % (2-11); NEUTROPHILS 81.3 % (40-80); PLATELET COUNT 278 10x3/uL (130-400); WBC 4.8 10x3/uL (4.8-10.8)
[2016-07-28 07:20] LABS: ANION GAP 14.3 mmol/L (8-16); CALCIUM 8.5 mg/dL (8.5-10.1); CARBON DIOXIDE 27.4 mmol/L (21.0-32.0); CREATININE - SERUM 1.6 mg/dL (0.6-1.3); MAGNESIUM - SERUM 2.5 mg/dL (1.8-2.4); PHOSPHOROUS 3.1 mg/dL (2.5-4.9); POTASSIUM - SERUM 3.7 mmol/L (3.5-5.1)
[2016-07-28 07:21] LABS: APTT 45.7 SECONDS (22.8-39.4); INR 1.21 (0.85-1.17); PROTIME 15.2 SECONDS (11.6-15.0)
--- NOTE | 2016-07-28 08:00 | NUR ---
PT SITTING UP IN BED DENIES NEEDS WILL CONT TO MONITOR.
--- NOTE | 2016-07-28 09:44 | NUR ---
PT BACK FROM THORACENTESIS. VS WNL. PT SITTING UP IN BED DENIES NEEDS
--- NOTE | 2016-07-28 12:19 | NUR ---
PT SITTING UP IN BED EATING LUNCH. DENIES NEEDS. PT UP WITH WALKER TO THE BATHROOM MIN STANDBY ASSIST. WILL CONT TO MONITOR.
--- NOTE | 2016-07-28 14:23 | NUR ---
Nutrition follow-up: Pt NPO at this time. PO intake of Low sodium diet has been ~50% of meals labs reviewed +BM Wt: 158# RDN following.
[2016-07-28 15:49] LABS: PROTEIN - BODY FLUID 1.4 G/DL
[2016-07-28 16:41] LABS: EOS BF 1 %; LYMPH - BF 16 %; MACROPHAGES BF 31 %; MESOTHELIALS BF 4 %; NEUT - BF 48 %
--- NOTE | 2016-07-28 18:17 | NUR ---
PT SITTING UP IN BED DENIES NEEDS
--- NOTE | 2016-07-28 20:05 | NUR ---
RESUMED CARE OF PT, LYING IN BED RESPIRAITONS EVEN AND UNLABORED ON 10LPM VIA OXYMIZER. 74 SR ON TELEMETRY. RIGHT WRIST INFUSING NS @ 10. REQUESTS PAIN MEDICATION AT THIS TIME. WILL CONTINUE TO MONITOR. SEE NURSE ASSESSMENT.
[2016-07-29] VITALS: BP 125/60
[2016-07-29 04:00] VITALS: BP 111/74
[2016-07-29 05:51] LABS: BASOPHILS 0.2 % (0.0-2.0); EOSINOPHILS 3.5 % (0-7); HEMATOCRIT 28.6 % (42.0-54.0); HEMOGLOBIN 9.1 g/dL (13.5-17.5); IMMATURE GRANULOCYTES 0.9 % (0-5); LYMPHOCYTES 5.7 % (15-50); MCH 29.1 pg (26.0-34.0); MCHC 31.8 g/dL (31.0-37.0); MCV 91.4 fL (80.0-100.0); MEAN PLATELET VOLUME 9.1 fL (7.4-10.4); MONOCYTES 15.5 % (2-11); NEUTROPHILS 74.2 % (40-80); PLATELET COUNT 284 10x3/uL (130-400); RBC 3.13 10x6/uL (4.20-6.10); RDW 17.2 % (11.5-14.5); WBC 4.6 10x3/uL (4.8-10.8)
[2016-07-29 06:16] LABS: ANION GAP 14.2 mmol/L (8-16); CALCIUM 8.7 mg/dL (8.5-10.1); CARBON DIOXIDE 26.8 mmol/L (21.0-32.0); CREATININE - SERUM 1.7 mg/dL (0.6-1.3); MAGNESIUM - SERUM 2.1 mg/dL (1.8-2.4); PHOSPHOROUS 3.2 mg/dL (2.5-4.9); VANCOMYCIN - TROUGH 16.3 ug/mL (10.0-20.0)
--- NOTE | 2016-07-29 06:50 | NUR ---
NO CHANGES FROM PREVIOUS ASSESSMENT, CALL LIGHT IN REACH. LINENS CHANGED AND BATH GIVEN.
[2016-07-29 07:41] VITALS: BP 135/72
--- NOTE | 2016-07-29 08:34 | NUR ---
INTRODUCED MYSELF TO PT PRIMARY RN FOR TODAYS SHIFT. SHIFT ASSESSMENT COMPLETED. PT IS ALERT AND ORIENTED RESTING QUIETLY SITTING UP IN BED. RR SLIGHTLY LABORED WITH OXYMIZER @6L IN PLACE. PT HAS A R.FA PIV WITH DRSG CDI AND SWAB CAPS IN USE. PT C/O BEING CONSTIPATED. BOWEL SOUNDS ACTIVE X4, ADMINISTERED ORDERED MIRALAX MIXED IN OJ AND WILL CONTINUE TO ASSESS NEED FOR BOWEL MOVEMENT. BILAT ARMS VERY BRUISED/DISCOLORED MOST LIKELY R/T BLOOD THINNERS. BILAT SCDS IN PLACE, SKIN CHECKED UNDERNEATH AND NO BREAKDOWN NOTED. PT HAS DRSG TO R.SIDE BACK R/T THORENCENTESIS DONE, DRSG CDI NO S/S OF BLEEDING OR HEMATOMA NOTED. PT RESTING AND DENIES ANY FURTHER NEEDS AT THIS TIME. CL IN REACH, BED IN LOWEST, SIDE RAILS X2. WILL CPOC.
[2016-07-29 11:15] VITALS: BP 118/83
[2016-07-29 14:58] VITALS: BP 131/68
[2016-07-29 15:23] LABS: ACID FAST SMEAR Negative (()); AFB SPECIMEN PROCESSING Not Indicated (())
[2016-07-29 20:00] VITALS: BP 112/68
--- NOTE | 2016-07-29 20:12 | NUR ---
RESUMED CARE OF PT, LYING IN BED RESPIRATIONS EVEN AND UNLABORED ON 6LPM VIA OXYMIZER. RIGHT FOREARM INFUSING NS @ KVO. 81 SR ON TELEMETRY. CALL LIGHT IN REACH. WILL CONTINUE TO MONITOR. SEE NURSE ASSESSMENT.
--- NOTE | 2016-07-30 02:22 | NUR ---
LYING IN BED, CALL LIGHT IN REACH. WILL CONTINUE WITH PLAN OF CARE. [address] ST ON TELEMETRY
[2016-07-30 04:00] VITALS: BP 130/67
[2016-07-30 04:48] LABS: BASOPHILS 0.2 % (0.0-2.0); EOSINOPHILS 5.5 % (0-7); HEMATOCRIT 28.9 % (42.0-54.0); HEMOGLOBIN 9.2 g/dL (13.5-17.5); IMMATURE GRANULOCYTES 1.7 % (0-5); LYMPHOCYTES 8.9 % (15-50); MCH 29.1 pg (26.0-34.0); MCHC 31.8 g/dL (31.0-37.0); MCV 91.5 fL (80.0-100.0); MONOCYTES 8.9 % (2-11); NEUTROPHILS 74.8 % (40-80); PLATELET COUNT 267 10x3/uL (130-400); RBC 3.16 10x6/uL (4.20-6.10); WBC 4.2 10x3/uL (4.8-10.8)
[2016-07-30 05:13] LABS: ANION GAP 13.2 mmol/L (8-16); CARBON DIOXIDE 29.6 mmol/L (21.0-32.0); CREATININE - SERUM 1.8 mg/dL (0.6-1.3); MAGNESIUM - SERUM 2.1 mg/dL (1.8-2.4); POTASSIUM - SERUM 3.8 mmol/L (3.5-5.1)
[2016-07-30 08:47] VITALS: BP 127/60
[2016-07-30 13:18] LABS: FUNGUS STAIN Final report (())
[2016-07-30 13:34] VITALS: BP 113/61
--- NOTE | 2016-07-30 13:49 | CN ---
PATIENT NAME:IBAN ALATORRE MEDICAL RECORD: [id number] : [birth year] LOCATION:. D.2127 ADMIT DATE: 07/24/16 ACCOUNT: [id number] CONSULTING PHYSICIAN: ALEISHA ENGLISH MD REFERRING PHYSICIAN: ASHLEY GALINDO MD DATE OF CONSULTATION: 07/26/2016 CONSULT REQUESTING PHYSICIAN: Jesus Manuel Green MD REASON FOR CONSULTATION: Right lower lobe pneumonia and parapneumonic pleural effusion. HISTORY OF PRESENT ILLNESS: Mr. Alatorre is an 89-year-old gentleman who has recent recurrent hospitalization at [facility]. He was told that he has pneumonia, right lower lobe, which did not resolve. He was sent to [facility], but the patient came back with shortness of breath and fever and coughing. He also hears himself wheezing. The patient has remote history of smoking. REVIEW OF SYSTEMS: Mainly in the history of present illness. PAST MEDICAL HISTORY: 1. History of sick sinus syndrome, status post pacemaker placement. 2. Chronic obstructive pulmonary disease. 3. Hypertension. 4. Hypothyroidism. 5. Degenerative joint disease. 6. History of diverticulitis. 7. Gastroesophageal reflux disease. 8. Coronary artery disease. PAST SURGICAL HISTORY: 1. He has bilateral cataract surgery. 2. Bilateral knee replacement surgery. 3. Right inguinal hernia repair. 4. Cholecystectomy. 5. Transurethral resection of the prostate. 6. Status post pacemaker placement. ALLERGIES: ISOSORBIDE, ADHESIVE TAPE, AND CORTISONE. PERSONAL AND SOCIAL HISTORY: The patient has remote history of smoking. He smoked for nearly 15 years. He is a nondrinker. FAMILY HISTORY: Noncontributory. PHYSICAL EXAMINATION: GENERAL: Now, the patient is lying comfortably in bed. He is not in acute distress. VITAL SIGNS: The blood pressure is 114/51, pulse is 76, respiration 18, temperature 98.4, and SPO2 is 95% on 4 liters nasal cannula. HEENT: Conjunctivae pink, sclerae nonicteric. NECK: Supple. There is no JVD. CHEST: The chest excursion is minimal and both have crackles at the right base. No wheezing. HEART: Rhythm regular, normal sound, no murmur. CONSULT REPORT [id number] IBAN ALATORRE ABDOMEN: Soft. Bowel sounds present. No hepatosplenomegaly. RECTAL: Deferred. EXTREMITIES: No cyanosis, no clubbing, no pedal edema. SKIN: Warm, normal turgor. CENTRAL NERVOUS SYSTEM: The patient is awake and alert. There are no obvious cranial nerve abnormality. The gait was not tested. IMPRESSION: 1. Pneumonia, right lower lobe, most likely hospital-acquired pneumonia, rule out aspiration with a history of gastroesophageal reflux disease. 2. Right parapneumonic pleural effusion. 3. Acute hypoxic respiratory failure. 4. Hypothyroidism. 5. Acute exacerbation of chronic obstructive pulmonary disease. 6. Anemia secondary to lower gastrointestinal bleed. 7. Sick sinus syndrome. RECOMMENDATION: 1. I will get the CT scan of the chest. 2. Continue albuterol/ipratropium nebulizer. Start on Brovana and budesonide nebulizer. 3. Add Levaquin. Continue vancomycin and Zosyn. 4. Further recommendation of the CT scan of the chest. Dr. Green, once again, thanks for involving me in the care of Mr. Alatorre. TRANSINT:[id number] Voice Confirmation ID: [id number] DOCUMENT ID: [id number] ALEISHA ENGLISH MD at 1349 CC: JESUS MANUEL GREEN MD [id number] DICTATION DATE: 07/26/16 175 SUPERVISOR ROLLER PRINTING: 07/26/16 8384 ADM IN [facility] [address] [place] [address]
--- NOTE | 2016-07-30 14:14 | NUR ---
Nutrition Follow Up: Pt reported that his appetite is okay. He said that he is very constipated and he refuses to eat solid food until he has a BM. Pt stated that he is drinking Ensure and consuming soups, etc. Noted per GI note pt is on a bowel regimen. Pt is eating 30% meal avg on a regular diet. +BM 07/28/16. No new wt to assess. Labs noted - BUN, Cr elevated. Meds noted including Lasix, Miralax, MOM, Vit B1, Vit B12, Dulcolax. Pt with poor po intake at this time. Rec continue current diet. RD following.
[2016-07-30 18:15] VITALS: BP 134/88
--- NOTE | 2016-07-30 21:19 | NUR ---
HS MEDS GIVEN. HELD ALL LAXATIVE MEDS DUE TO PATIENT HAVING A VERY LARGE EXPLOSIVE BM AT END OF DAY SHIFT. SCDS IN PLACE. IV ABT UP AND INFUSING. GIVEN RESTORIL AND ULTRAM TO PROMOTE SLEEP AND COMFORT. CALL LIGHT IN REACH.
[2016-07-30 22:19] VITALS: BP 121/72
--- NOTE | 2016-07-30 23:26 | NUR ---
PT RESTING IN BED WITH NO DISTRESS. O2 @ 5L/OXIMISER. IVF AT KVO INFUSING. SIDERAILS UP X 2, CALL LIGHT IN REACH.
[2016-07-31 01:26] VITALS: BP 110/65
--- NOTE | 2016-07-31 02:58 | NUR ---
RESTING IN BED WITH IVF AT [facility]. HAS BEEN ASSISTED UP X 1 TO USE BSC. NO DISTRESS. CPOC.
--- NOTE | 2016-07-31 03:24 | NUR ---
PT AWAKE WITH C/O NAUSEA/UPSET STOMACH. ADMINISTERED IV ZOFRAN AND ALSO GAVE NEXT DOSE OF IV PROTONIX. IV ABT STARTED. PT VERY TALKATIVE. WILL MONITOR.
[2016-07-31 04:29] VITALS: BP 117/52
--- NOTE | 2016-07-31 05:53 | NUR ---
CARE PROVIDED FOR URINARY INCONTINENCE. NEW LINENS. AM MEDS GIVEN. ABT UP AND INFUSING.
[2016-07-31 05:54] LABS: BASOPHILS 0.2 % (0.0-2.0); HEMATOCRIT 28.6 % (42.0-54.0); HEMOGLOBIN 9.2 g/dL (13.5-17.5); IMMATURE GRANULOCYTES 0.9 % (0-5); LYMPHOCYTES 5.9 % (15-50); MCH 29.3 pg (26.0-34.0); MCHC 32.2 g/dL (31.0-37.0); MCV 91.1 fL (80.0-100.0); MEAN PLATELET VOLUME 9.1 fL (7.4-10.4); MONOCYTES 7.9 % (2-11); NEUTROPHILS 82.1 % (40-80); PLATELET COUNT 305 10x3/uL (130-400); RBC 3.14 10x6/uL (4.20-6.10)
[2016-07-31 05:57] LABS: WBC 6.3 10x3/uL (4.8-10.8)
[2016-07-31 06:22] LABS: ANION GAP 14.2 mmol/L (8-16); CARBON DIOXIDE 30.8 mmol/L (21.0-32.0); CREATININE - SERUM 1.9 mg/dL (0.6-1.3); MAGNESIUM - SERUM 2.4 mg/dL (1.8-2.4)
--- NOTE | 2016-07-31 07:45 | NUR ---
AM ROUNDING- PT CURRENTLY USING THE BATHROOM. ON MONITOR SHOWING ST, HR 122. PER ANGEL WITH TELEMETRY THIS IS NORMAL FOR PT. ON OXIMIZER AT 5L. IV SEEN TO RIGHT FOREARM WITH NS RUNNING AT KVO (20). ON EP, WILL CHECK AM LABS AND TX PER PROTOCOL. PT IS ALERT AND ORIENTED. BRUISING AND DISCOLORATION SEEN TO BILATERAL ARMS. NO NEED AT CURRENT TIME. WILL CONTINUE TO MONITOR AND CONTINUE WITH PLAN OF CARE.
[2016-07-31 09:04] VITALS: BP 106/61
[2016-07-31 12:23] VITALS: BP 121/72
[2016-07-31 16:19] VITALS: BP 135/60
--- NOTE | 2016-07-31 18:27 | NUR ---
PT LAYING IN BED WITH C/O OF 7/10 PAIN FROM NECK, ANKLE, AND WRIST. PT GIVEN TRAMADOL PRN ORDERED FOR PAIN. WILL CONTINUE TO MONITOR.
[2016-07-31 20:59] VITALS: BP 115/65
[2016-08-01 00:12] VITALS: BP 115/60
--- NOTE | 2016-08-01 01:42 | NUR ---
PT RESTING IN BED WITH NO DISTRESS. ALERT/ORIENTED. ST/SR PER TELEMETRY. O2 @ 5L/OXIMISER. IV TO RFA WITH NS @ KVO. SCDS IN USE. CALL LIGHT IN EACH.
[2016-08-01 04:00] VITALS: BP 117/63
--- NOTE | 2016-08-01 05:15 | NUR ---
PT AWAKE WITH C/O GENERALIZED NAUSEA. AM MEDS GIVEN. LEMON MECHOOPDA DRINK GIVEN. SIDERAILS UP X 2 AND CALL LIGHT IN REACH. CPOC.
[2016-08-01 06:03] LABS: BASOPHILS 0.2 % (0.0-2.0); EOSINOPHILS 1.8 % (0-7); HEMATOCRIT 28.4 % (42.0-54.0); HEMOGLOBIN 9.1 g/dL (13.5-17.5); IMMATURE GRANULOCYTES 1.2 % (0-5); LYMPHOCYTES 5.3 % (15-50); MCH 29.2 pg (26.0-34.0); MEAN PLATELET VOLUME 9.3 fL (7.4-10.4); MONOCYTES 7.5 % (2-11); PLATELET COUNT 333 10x3/uL (130-400); RBC 3.12 10x6/uL (4.20-6.10); RDW 16.8 % (11.5-14.5); WBC 5.1 10x3/uL (4.8-10.8)
[2016-08-01 06:43] LABS: ANION GAP 13.3 mmol/L (8-16); CALCIUM 8.5 mg/dL (8.5-10.1); CARBON DIOXIDE 32.2 mmol/L (21.0-32.0); CREATININE - SERUM 1.8 mg/dL (0.6-1.3); MAGNESIUM - SERUM 2.3 mg/dL (1.8-2.4); POTASSIUM - SERUM 3.5 mmol/L (3.5-5.1)
--- NOTE | 2016-08-01 07:39 | NUR ---
AM ROUNDING- RECEIVED REPORT FROM SPECIAL PROCEDURES TECHNOLOGIST NURSE DEIRDRE MOMIN. PT IS CURRENTLY SITTING UP IN BED WITH EYES OPEN RECEIVING A BREATHING TX. PT IS C/O PAIN FROM NECK, WRIST, AND ANKLES. ON MONITOR SHOWING SR, HR 69 WITH FIRST DEGREE BLOCK PER ANGEL WITH TELEMETRY. ON OXIMIZER AT 5L. IV SEEN TO RIGHT FOREARM THAT IS CURRENTLY SALINE LOCKED. ON EP, WILL CHECK AM LABS AND TX PER PROTOCOL. BRUISED/DISCOLORATION SEEN TO BILATERAL FOREARMS. NO NEED AT CURRENT TIME. WILL CONTINUE TO MONITOR AND CONTINUE WITH PLAN OF CARE.
[2016-08-01 08:40] VITALS: BP 139/67
[2016-08-01 13:46] VITALS: BP 137/64
[2016-08-01 15:58] VITALS: BP 145/56
--- NOTE | 2016-08-01 17:22 | NUR ---
PT LAYING IN BED ON BACK WITH EYES OPEN RESTING. PT IS C/O BEING NAUSEOUS CURRENTLY. GAVE PT ZOFRAN PRN ORDERED. WILL CONTINUE TO MONITOR.
--- NOTE | 2016-08-01 19:43 | NUR ---
HAS BEEN ASSISTED UP TO BATHROOM TO VOID TWICE. NO DISTRESS. O2 2 5L/OXIMISER. SR WITH PACEMAKER PER TELEMETRY. SALINE LOCK TO RFA. CPOC.
[2016-08-01 20:15] VITALS: BP 137/68
--- NOTE | 2016-08-01 23:45 | NUR ---
PT WAS ASSISTED UP TO BATHROOM TO VOID, USING HIS WALKER. STRENGTH IS IMPROVING. HS MEDS GIVEN. PT TELLS NURSE HE IS FEELING BETTER. ASSISTED BACK TO BED AND NOW READYING FOR SLEEP.
[2016-08-02 02:31] VITALS: BP 124/52
[2016-08-02 04:45] VITALS: BP 156/45
[2016-08-02 04:57] LABS: BASOPHILS 0.1 % (0.0-2.0); EOSINOPHILS 0.9 % (0-7); HEMATOCRIT 29.5 % (42.0-54.0); HEMOGLOBIN 9.5 g/dL (13.5-17.5); IMMATURE GRANULOCYTES 0.8 % (0-5); LYMPHOCYTES 5.9 % (15-50); MCH 29.4 pg (26.0-34.0); MCHC 32.2 g/dL (31.0-37.0); MCV 91.3 fL (80.0-100.0); MEAN PLATELET VOLUME 9.2 fL (7.4-10.4); MONOCYTES 5.7 % (2-11); NEUTROPHILS 86.6 % (40-80); PLATELET COUNT 352 10x3/uL (130-400); RBC 3.23 10x6/uL (4.20-6.10); RDW 16.7 % (11.5-14.5)
[2016-08-02 04:59] LABS: WBC 8.5 10x3/uL (4.8-10.8)
[2016-08-02 05:13] LABS: ANION GAP 10.3 mmol/L (8-16); CARBON DIOXIDE 34.2 mmol/L (21.0-32.0); CREATININE - SERUM 1.8 mg/dL (0.6-1.3); MAGNESIUM - SERUM 2.4 mg/dL (1.8-2.4); POTASSIUM - SERUM 3.5 mmol/L (3.5-5.1)
[2016-08-02 07:58] VITALS: BP 126/62
[2016-08-02 11:48] VITALS: BP 133/65
[2016-08-02 16:40] VITALS: BP 143/67
[2016-08-02 20:00] VITALS: BP 147/64
--- NOTE | 2016-08-02 22:15 | NUR ---
C/O SOB, O2 @ 5L VIA OXIMIZER, O2 SAT 72%, NOTIFIED RT AND INCREASED O2 UP TO 8L. RT INCREASED UP TO 10L MONITORING CLOSELY. O2 SAT COMING UP , REPOSITIONED FOR C & C, YELENA WELL. HOB UP SR UP X2, C/L IN REACH.
[2016-08-03 00:11] VITALS: BP 139/63
--- NOTE | 2016-08-03 03:01 | NUR ---
EYES CLOSED, RESP UNLAB WITH NO S/S OF ACUTE DISTRESS NOTED. C/L IN REACH, CONTINUE TO MONITOR.
[2016-08-03 04:00] VITALS: BP 145/69
[2016-08-03 05:15] LABS: BASOPHILS 0.1 % (0.0-2.0); EOSINOPHILS 0.3 % (0-7); HEMATOCRIT 29.5 % (42.0-54.0); HEMOGLOBIN 9.5 g/dL (13.5-17.5); IMMATURE GRANULOCYTES 0.7 % (0-5); LYMPHOCYTES 7.1 % (15-50); MCH 29.1 pg (26.0-34.0); MCHC 32.2 g/dL (31.0-37.0); MCV 90.5 fL (80.0-100.0); MEAN PLATELET VOLUME 9.3 fL (7.4-10.4); MONOCYTES 6.4 % (2-11); NEUTROPHILS 85.4 % (40-80); PLATELET COUNT 363 10x3/uL (130-400); RBC 3.26 10x6/uL (4.20-6.10); RDW 16.8 % (11.5-14.5); WBC 9.1 10x3/uL (4.8-10.8)
[2016-08-03 05:44] LABS: ANION GAP 12.3 mmol/L (8-16); CALCIUM 8.6 mg/dL (8.5-10.1); CARBON DIOXIDE 32.6 mmol/L (21.0-32.0); CREATININE - SERUM 1.8 mg/dL (0.6-1.3); MAGNESIUM - SERUM 2.3 mg/dL (1.8-2.4); POTASSIUM - SERUM 3.9 mmol/L (3.5-5.1)
[2016-08-03] MEDS ORDERED: BROVANA15 MCG/2 M INH (07:18)
[2016-08-03] MEDS ORDERED: IPRAT-ALBUT 0.5-3 ML INH (07:19)
[2016-08-03] MEDS ORDERED: NITRO-BID60 GM TOPICAL (07:21)
[2016-08-03] MEDS ORDERED: PULMICORT0.5 MG/21 UPD (07:21)
[2016-08-03] MEDS ORDERED: MUCINEX600 MG PO (07:21)
[2016-08-03 08:02] VITALS: BP 150/64
[2016-08-03 11:45] VITALS: BP 134/60
--- NOTE | 2016-08-03 12:04 | OP ---
PATIENT NAME: IBAN PAREKH MEDICAL RECORD: [id number] :[birth year] LOCATION:D.M2 D.2127 ADMISSION DATE:07/24/16 SURGEON: SUSAN VARELA DO DATE OF OPERATION: 07/26/2016 PROCEDURE: EGD. SCOPE: Olympus video gastroscope. MEDICATIONS: Propofol 50 mg per anesthesia. INDICATION FOR THE PROCEDURE: Anemia. FINDINGS: Informed consent was given. The patient was made comfortable with propofol. After adequate sedation was achieved by slow IV push, the patient was placed on his left side. The endoscope was then advanced under direct visualization through the mouth to the fourth portion of the duodenum. Upper, middle, and distal third of the esophagus all appeared normal. At the GE junction, there was evidence of mild LA class B reflux induced esophagitis. There were no ulcerations or other lesions present. The scope was advanced into the stomach and retroflexed to view the cardia. There was evidence of a small sliding hiatal hernia. Scope was then advanced down through the body of the stomach to the antrum and prepyloric region. The mucosa here appeared normal without evidence of erosions, gastritis, or ulcerations. The scope was then advanced into the duodenum where the bulb, second portion of the duodenum, third portion of the duodenum, and fourth portion of duodenum all appeared normal. The scope was then withdrawn from the patient. The patient tolerated the procedure well and there were no complications. ESTIMATED BLOOD LOSS: None. IMPRESSIONS: 1. Mild LA class B reflux induced esophagitis at the gastroesophageal junction. 2. Small sliding hiatal hernia. 3. No evidence of current or recent bleeding or lesions to suggest an upper gastrointestinal bleeding source. 4. Anemia consistent with anemia of chronic disease. His MCV index is normocytic and his TIBC is decreased suggesting the diagnosis of anemia of chronic disease. He has had a recent colonoscopy with no findings other than some polyps, which have been removed. PLAN AND RECOMMENDATIONS: 1. Continue current management and treatment of hospital-acquired pneumonia. 2. Further evaluation endoscopically can be considered, but at this time, I would recommend treatment of respiratory disease before progressing any further. The patient is high risk for sedation with anesthesia and this should be considered in any factors moving forward at this time. TRANSINT:[id number] Voice Confirmation ID: [id number] DOCUMENT ID: [id number] OPERATIVE REPORT [id number] IBAN PAREKH SUSAN VARELA DO at 1204 CC: [id number] DICTATION DATE: 07/26/16 1601 CEMENT KILN OPERATOR: 07/26/162039 ADM IN [facility] [address] [id number]
--- NOTE | 2016-08-03 13:34 | NUR ---
Patient Name: IBAN PAREKH Admission Status: ER Accout number: [id number] Admission Date: 07-24-2016 : 1926 Admission Diagnosis:SHORTNESS OF BREATH Attending: BITA Current LOS: 10 Anticipated DC Date: 08-03-2016 Planned Disposition: Home with Home Health Primary Insurance: MEDICARE A & B PLANNED EXTERNAL PROVIDER: [facility] Discharge Planning Comments: * Is the patient Alert and Oriented? Yes 0 * How many steps to enter\exit or inside your home? 3 0 * PCP SR. DEMLY BARKER, [facility] 0 * Pharmacy [facility] 0 * Preadmission Environment Home Alone 0 * ADLs Partial Dependent 0 * Partial ADLs (Assistance needed) Bathing Medication Management 0 * Equipment Bedside Commode Cane Nebulizer Oxygen Rolling Walker Shower Chair 0 * Other Equipment [facility] MED[facility] EQUIPMENT PROVIDER [facility] - HOME AND PORTABLE OXYGEN PROVIDER UNKNOWN PROVIDER - NEBULIZER 0 * List name and contact numbers for known caregivers / representatives who currently or will assist patient after discharge: LE PAREKH, BROTHER, 0 * Community resources currently utilized Private Duty Care [place] [facility] 0 * Please name any agencies selected above. [facility] 16 HRS [facility]ERSON[facility] PER WEEK IN HIS HOME. PT REPORTS PRIVATE PAYING DIFFERENCE FOR 24 HOUR CARE AT HOME WITH [facility]. 0 * Additional services required to return to the preadmission environment? Yes * Can the patient safely return to the preadmission environment? Yes 0 * Has this patient been hospitalized within the prior 30 days at any hospital? Yes 0 CM MET WITH PT IN ROOM TO DISCUSS DISCHARGE PLANNING AND NEEDS. PT REPORTS LIVING AT HOME ALONE. PT REPORTS HAVING PERSONAL CARE FOR 16 HOURS PER WEEK PAID FOR BY [place] AND HE HAS BEEN PRIVATE PAYING PERSONAL CARE FOR THE DIFFERENCE FOR 24 HOUR CARE. PT REPORTS CARE PROVIDER FROM [facility]. PT HAS BEDSIDE COMMEDE, CANE, ROLLING WALKER, SHOWER CHAIR AND OXYGEN (HOME AND PORTABLE) WELL NEBULIZER. PT REPORTS HIS MEDICAL EQUIPMENT PROVIDER IS [facility] BUT SUBSEQUENT CALLS FROM RN HERNANDEZ LINDSEY DETERMINED THAT PT'S OXYGEN PROVIDER IS [facility]. CM DISCUSSED AVAILABILITY OF HOME HEALTH, REHAB SERVICES AND MEDICAL EQUIPMENT. PT WANTS HOME HEALTH WITH [facility]. CHOICE SIGNED. PT REPORTS HIS SHEET [employer] WILL PICK HIM UP FOR DISCHARGE HOME. IMPORTANT MESSAGE FROM MEDICARE PROVIDED AND EXPLAINED. CM FAXED REFERRAL AND DISCHARGE INFORMATION TO [facility] TO [facility] [place], . CM CALLED [facility], , SPOKE TO LIOR WHO WILL PLACE PT ON SCHEDULE FOR HOME HEALTH ADMISSION; CM ADVISED THAT [facility] WILL NEED TO CON[facility]CT [facility] ORDERS. CM FA[facility]ED REFERRAL AND [facility]CHARGE INFORMATION TO [facility] AT [phone]. CM ADVISED PT TO CALL [facility] AFTER ARRIVAL AT HOME TO ENSURE THAT [facility] IS FOLLOWING UP WITH HOME HEALTH ORDERS FOR HIM TO RECEIVE THE SERVICES FROM [facility]. Metal Fabrication Supervisor: Harry Godoy
--- NOTE | 2016-08-03 13:41 | NUR ---
DR RODRIGUEZ SPOKE WITH CM TODAY REGARDING DC PLANNING FOR PATIENT. DR RODRIGUEZ STATED THAT MR PAREKH TELLS HIM THAT HE HAS 24 HR/7 DAY PER WEEK CAREGIVERS IN HIS HOME AND HE WOULD LIKE FOR CM TO VERIFY AGENCY NAME AND WHAT CARE IS PROVIDED TO THIS PATIENT. CM PLACED CALL TO QUIQUE LUTHER WITH [facility] WHO INFORMED THAT MR PAREKH RECEIVES 24 HOURS NON-MEDICAL CAREGIVER SERVICES THROUGH HER AGENCY. STATED THAT THEY CLEAN, PREPARE MEALS, ASSIST PATIENT WITH BATHING AND TO/FROM RESTROOM, THEY REMIND HIM TO TAKE MEDICATIONS, BUT CANNOT ASSIST WITH SETTING UP MEDICAITIONS THEY ARE NON-MEDICAL. ON PT'S LAST ADMISSION CM ATTEMPTED TO ARRANGE HH SERVICES THROUGH THE [facility]. DESPITE MULTIPLE CALLS TO THE LOCAL [facility], VARIOUS PHONE MESSAGES LEFT AT [facility], HH ORDERS FAXED MULTIPLE TIMES TO THE [facility], THE [facility] NEVER FOLLOWED THROUGH WITH ARRANGING HH SERVICES AND PATIENT HAS NOW RE-ADMITTED BACK TO HOSPITAL. CM PLACED CALL TO [facility] WHERE PT'S PCP IS LOCATED AND SPOKE TO MARCY TO INFORM OF PATIENT'S NEED FOR HH SERVICES. MARCY SENT MESSAGE TO PT'S PRIMARY PROVIDER AND PAC TEAM TO CALL CM TO ASSIST IN ARRANGING HH SERVICES. CM WILL AWAIT CALL BACK FROM [facility] TO ASSIST IN ARRANGING HH SERVICES. PT STATED THAT HE HAS HOME AND PORTABLE OXYGEN AND A NEBULIZER THAT WAS ARRANGED ON HIS LAST ADMISSION TO [facility] . HIS "DIRECTOR CARD" WILL BRING PORTABLE OXYGEN TO [facility] FOR DISCHARGE AND SHE WILL ALSO DRIVE HIM HOME IF HE DISCHARGES BEFORE 3PM TODAY. CM PLACED CALL TO [facility] TO CONFIRM PT'S OXYGEN EQUIPMENT HIS RESTING ROOM AIR SPO2 THIS ADMISSION IS 82%. [facility] CONFIRMED THAT PATIENT HAS HOME CONCENTRATOR AND PORTABLE OXYGEN. PATIENT ALSO STATED THAT HE HAS A HOME NEBULIZER. HERNANDEZ SPOKE WITH DR RODRIGUEZ TO INFORM THAT DR BARKER AT [facility] HAS YET TO SIGN HH ORDER SENT THREE WEEKS AGO FROM [facility] AT HOME. DR RODRIGUEZ PLACED CALL TO [facility] AND SPOKE TO DR BARKER WHO INFORMED DR RODRIGUEZ SHE WILL SIGN HH ORDER. SEE ADDITIONAL CM NOTES FOR THIS ADMISSION. YAIR REYNOSO RN,
--- NOTE | 2016-08-03 14:06 | NUR ---
ALERT AND ORIENTED X4. SITTING UP IN BED. FAMILY AT BEDSIDE. OXYGEN LOWERED TO 4L NASAL CANULA. O2 SAT 98%. FAMILY BROUGHT PORTABLE OXYGEN FOR DC. CONTINUE PLAN OF CARE AND SAFETY PRECAUTIONS.
--- NOTE | 2016-08-03 14:38 | EC ---
PATIENT:IBAN PAREKH DATE OF SERVICE: 07/24/16 SEX: M MEDICAL RECORD: [id number] DATE OF : [birth year] LOCATION:D.M2 D.212 AGE OF PATIENT: 89 ADMISSION DATE: 07/24/16 REFERRING PHYSICIAN: INTERPRETING PHYSICIAN: ONI ESPOSITO MD ECHOCARDIOGRAM REPORT ECHO CHARGES 4 ECHO COMPLETE CLINICAL DIAGNOSIS: CHF HX PACER/HTN/AFIB ECHOCARDIOGRAPHIC MEASUREMENTS (adult normal given) AC root (d.<3.7cm) 3.2 LV Septum d (<1.2 cm> 1.6 Valve Excursion 1.8 LV Septum (systole) 1.7 Left Atria (s.<4.0cm> 4.9 LVPW d(<1.2cm) 1.4 RV (d.<2.3cm) 3.9 LVPW (sytole) 1.6 LV diastole(<5.6CM) 4.3 MV E-F(>70mm/sec) LV systole 2.7 LVOT Diameter 2.0 MV exc.(>10mm) Est.ejection fraction (50-75%) Pericardial Effusion N DOPPLER: LVIT A 66.0 E 123 LA RVSP 19 LVOT 88 AOP1/2T 639 Asc. Ao 165 RVOT RA PA AV Gradient Peak 10.84 AV Mean 5.17 AV Area 1.4 MV Gradient Peak 8.73 MV Mean 3.30 MV Area COMMENTS: Supervisor Waterworks: Dawson OLMOS Claims Adjuster Supervisor:Stephanie Esposito TAPE# PACS DATE OF SERVICE: 07/28/2016 FINDINGS: 1. Left ventricular chamber size is within normal limits. Left ventricular systolic function is normal. Overall ejection fraction estimated at 55%. 2. Left atrium is enlarged at 4.9 cm. Right atrium and right ventricular chamber sizes are as well moderately dilated. 3. Valvular structures have normal structure and motion. 4. Doppler interrogation reveals mild aortic insufficiency, mild mitral regurgitation, trace tricuspid regurgitation. No other valvular insufficiency ECHOCARDIOGRAM REPORT [id number] IBAN PAREKH or stenosis and pulmonary systolic pressure is normal estimated at 19 mmHg. 5. No evidence of pericardial effusion or left ventricular thrombus. TRANSINT:[id number] Voice Confirmation ID: [id number] DOCUMENT ID: [id number] ONI ESPOSITO MD at [id number] CC: [id number] DICTATION DATE: 07/28/16 1706 DISABILITY PROGRAM NAVIGATOR: 07/29/16 0910 ADM IN [facility] [address] [id number]
--- NOTE | 2016-08-03 16:14 | NUR ---
ALERT AND ORIENTED X4. DISCHARGE INSTRUCTIONS GIVEN VERBALLY AND WRITTEN. DISCHARGE PAPERS SIGNED ON CHART. ESCORT TO RIDE VIA WHEELCHAIR. REMAINS FREE FROM INJURY.
--- NOTE | 2016-08-06 06:54 | DS ---
PATIENT:IBAN PAREKH :[birth year] MEDICAL RECORD: [id number] DISCHARGE SUMMARY ADMISSION DATE: 07/24/16 DISCHARGE DATE: 08/03/16 DISCHARGE DIAGNOSES: Hospital-acquired pneumonia, acute hypoxic respiratory failure, right lower lobe pneumonia, transudative pleural effusion, right lung, status post thoracentesis, gastroesophageal reflux disease, anemia of chronic disease, hypothyroidism, hypertension, constipation, diverticulosis, sick sinus syndrome, paroxysmal atrial fibrillation and mild mitral regurgitation, chronic diastolic dysfunction, EF 55%, chronic renal insufficiency, osteoarthritis, restless legs syndrome, class B reflux induced esophagitis, small sliding hiatal hernia. CONSULTANTS: Dr. Javier from pulmonary, Dr. Murray from GI. PROCEDURE PERFORMED: EGD, thoracentesis right lung. HOSPITAL COURSE: An 89-year-old male with no local physician, presented to me with right lower lobe pneumonia and hypoxemia. He was hospitalized previously for GI issues and colonoscopy per Dr. Avendano showing diverticular disease. His EKG was mildly abnormal on admission showing slightly inferior strain pattern with elevated troponin. Dr. Chance from cardiology was consulted and felt this was not acute. He was placed on broad-spectrum IV antibiotics, had pulmonary and GI consults. He has had abdominal constipation and ultimately was found to be anemic. H&H of 9.1 and 27.9 and stable from prior admission. White count was 10,000. Creatinine was 1.6, troponin was 0.062 with a proBNP of 30/51. He was diuresed with Bumex and he had good diuresis. He had physical therapy and was able to walk on the mckeon with minimal assistance twice daily. He required high dose nasal prong O2 with gradual tapering per pulmonary. The patient continued to have trouble with constipation, now responding to MiraLax. At this time, his pulse ox 100%, pressure 145/59, respirations of 18, pulse of 73, and temperature 98.8. DISCHARGE LABORATORY DATA: Showed a white count of 9.1 thousand, H&H of 9.5 and 29.5, which has been stable, MCV of 90. Sodium 133, potassium is 3.9, BUN and creatinine are 27 and 1.8. The patient has 24-hour care through [facility] at his home as well as [facility] assistance. The social workers are confirming that today and he will be discharged home with home health and 24-hour assistance at his request. He will be on home O2 as well as updrafts 4 times daily. DISCHARGE MEDICATIONS: Brovana updraft 15 mcg b.i.d., DuoNeb updrafts q.6 hours, iron/vitamin C/succinic acid 150/50/50 mg 1 p.o. b.i.d., amiodarone 200 mg p.o. daily, doxazosin 1 mg 1/2 p.o. b.i.d., gemfibrozil 600 mg p.o. b.i.d., Mirapex 0.15 mg p.o. at bedtime, acetaminophen 500 mg q.4 hours p.r.n. fever, Lasix 40 mg p.o. b.i.d., Pulmicort 0.5 mg per updraft b.i.d., Mucinex 600 mg p.o. b.i.d., MiraLax 17 grams p.o. in juice daily, Protonix 40 mg p.o. daily, calcium carbonate with vitamin D chewable 1 q.6 hours p.r.n. dyspepsia, Zofran 4 mg tablet q.6 p.r.n. nausea, Synthroid 0.075 mg p.o. 30 minutes before breakfast daily, thiamin 100 mg p.o. daily, vitamin B12 of 1000 mcg p.o. daily. Amlodipine 10 mg p.o. daily. DIET: Regular as tolerated. ACTIVITY: Progressive with home health and PT assistance. O2 at 4 liters nasal cannula. Return to [place] clinic in 2 weeks for followup. Discharge to [place] [facility]. DISCHARGE SUMMARY REPORT [id number] GEOVANNADONNIEIBAN TRANSINT:[id number] Voice Confirmation ID: [id number] DOCUMENT ID: [id number] JAYLENE RODRIGUEZ MD at 0654 CC: [id number] DICTATION DATE: 08/03/16716 GRAIN WEIGHER: 08/03/16 0809 DIS IN 08/03/16 [facility] [address] [place] [address]
[2016-08-25 07:28] LABS: FUNGUS MYCOLOGY CULTURE Final report (())
== END 2016-08-03 16:19 | disposition home health service (06) | DRG 189 ==
LOC: D.ER 04:13 → D.M2 07:36
PROVIDERS: Family Medicine; Internal Medicine Gastroenterology; Internal Medicine Pulmonary Disease; Specialist; Surgery; ADMIT Family Medicine
PROC: 0DJ08ZZ Inspection of Upper Intestinal Tract, Via Natural or Artificial Opening Endoscopic (ICD-10-PCS; principal; 2016-07-26 14:00)
PROC: 0W993ZZ Drainage of Right Pleural Cavity, Percutaneous Approach (ICD-10-PCS; 2016-07-28)
DX: J96.01 Acute respiratory failure with hypoxia (principal); J69.0 Pneumonitis due to inhalation of food and vomit; J44.0 Chronic obstructive pulmonary disease with (acute) lower respiratory infection; J44.1 Chronic obstructive pulmonary disease with (acute) exacerbation; I50.32 Chronic diastolic (congestive) heart failure; N17.9 Acute kidney failure, unspecified; I13.0 Hypertensive heart and chronic kidney disease with heart failure and stage 1 through stage 4 chronic kidney disease, or unspecified chronic kidney disease; J98.11 Atelectasis; D63.8 Anemia in other chronic diseases classified elsewhere; E03.9 Hypothyroidism, unspecified; G25.81 Restless legs syndrome; R94.31 Abnormal electrocardiogram [ECG] [EKG]; R79.89 Other specified abnormal findings of blood chemistry; E78.5 Hyperlipidemia, unspecified; K21.9 Gastro-esophageal reflux disease without esophagitis; K57.90 Diverticulosis of intestine, part unspecified, without perforation or abscess without bleeding; K59.00 Constipation, unspecified; I48.0 Paroxysmal atrial fibrillation; K21.0 Gastro-esophageal reflux disease with esophagitis; K44.9 Diaphragmatic hernia without obstruction or gangrene; N18.9 Chronic kidney disease, unspecified; R00.0 Tachycardia, unspecified; Z95.0 Presence of cardiac pacemaker; Z87.01 Personal history of pneumonia (recurrent); Z87.891 Personal history of nicotine dependence